=== PATIENT | female | born 1940 | race Hispanic/Latino ===

== ENCOUNTER 2022-06-07 14:04 | Inpatient (IN) | payer MEDICARE, OTHER ==
[~2022-06-07] VITALS: Ht 157.5 cm; Wt 81.6 kg
[2022-06-07 15:15] VITALS: BP 124/84
[2022-06-07] MEDS ORDERED: HYDRALAZINE HCL 10 MG TABLET PO PRN (16:00)
[2022-06-07] MEDS ORDERED: ONDANSETRON 4MG INJ IV PRN (16:00)
[2022-06-07] MEDS ORDERED: ACETAMINOPHEN 325 MG TAB PO PRN ×2 (16:00)
[2022-06-07] MEDS ORDERED: FAMOTIDINE 20MG TAB PO SCH (16:28)
[2022-06-07 16:29] LABS: HEMATOCRIT 45.7 % (36-48); MEAN CORPUSCULAR HEMOGLOBIN 30.1 pg (27.0-33.0); MEAN CORPUSCULAR HGB CONC 32.2 g/dL (32.0-36.0); MEAN CORPUSCULAR VOLUME 93.5 fL (79-99); RED BLOOD CELL COUNT(AUTO) 4.89 MIL/uL (4.00-5.50); RED CELL DISTRIBUTION WIDTH 14.4 % (11.0-15.5); WHITE BLOOD COUNT (AUTO) 5.9 K/uL (4.8-10.8)
[2022-06-07 16:35] LABS: CREATININE 1.2 mg/dL (0.5-1.5); POTASSIUM 4.1 mmol/L (3.5-5.1)
[2022-06-07 16:42] LABS: ALBUMIN 3.7 g/dL (3.5-5.0); TOTAL PROTEIN, SERUM 7.7 g/dL (6.0-8.3)
[2022-06-07] MEDS ORDERED: ACET-2079 PO (18:26)
[2022-06-07] MEDS ORDERED: GABA300S PO (18:26)
[2022-06-07] MEDS ORDERED: ATOR40TA71 PO (18:26)
[2022-06-07] MEDS ORDERED: CALC-190 PO (18:26)
[2022-06-07] MEDS ORDERED: WARF-67 PO (18:26)
[2022-06-07] MEDS ORDERED: FURO20TA4 PO (18:26)
[2022-06-07] MEDS ORDERED: TOLT4CAP27 PO (18:26)
[2022-06-07] MEDS ORDERED: WARF4TAB72 PO (18:26)
[2022-06-07] MEDS ORDERED: TEMA15CA PO (18:26)
[2022-06-07] MEDS ORDERED: POTA10CA44 PO (18:26)
[2022-06-07] MEDS ORDERED: SPIR25TA6 PO (18:26)
[2022-06-07] MEDS ORDERED: LEVO125T11 PO (18:26)
[2022-06-08] MEDS ORDERED: ENOXAPARIN SODIUM 40 MG/0.4 ML SYRINGE SQ SCH (09:00)
== END 2022-06-07 19:30 | disposition home or self-care (01) | DRG 311 ==
LOC: 4BH 15:10
PROVIDERS: ADMIT Hospitalist; ATTEND Hospitalist
DX: I20.0 Unstable angina (principal); I69.351 Hemiplegia and hemiparesis following cerebral infarction affecting right dominant side; I10 Essential (primary) hypertension; E78.5 Hyperlipidemia, unspecified; E66.9 Obesity, unspecified; Z68.32 Body mass index [BMI] 32.0-32.9, adult
CPT/HCPCS: 36415; 80053; 84443; 84484; 85027; 93005; G0378

== ENCOUNTER → 2022-10-09 | Outpatient (CLI) | payer MEDICARE, OTHER ==
[~2022-10-09] MED LIST: ACET-2079 PO; ATOR40TA71 PO; CALC-190 PO; FURO20TA4 PO; GABA300S PO; LEVO125T11 PO; POTA10CA44 PO; REGADENOSON 0.4 MG/5 ML PF SYG IVP SCH; SPIR25TA6 PO; TEMA15CA PO; TOLT4CAP27 PO; WARF-67 PO; WARF4TAB72 PO
== END | disposition home or self-care (01) ==
LOC: RAH 08:47
PROVIDERS: ATTEND Internal Medicine Interventional Cardiology
DX: R07.9 Chest pain, unspecified (principal)
CPT/HCPCS: 78452; 96374; 93017; J2785; A9500 ×2

== ENCOUNTER 2023-02-27 09:10 | Emergency (ER) | payer MEDICARE, OTHER ==
[~2023-02-27] VITALS: Ht 157.5 cm; Wt 62.6 kg
[~2023-02-27 09:10] MED LIST changes: -POTA10CA44 PO; +POTA10CA45 PO; -REGADENOSON 0.4 MG/5 ML PF SYG IVP SCH
[2023-02-27] MEDS ORDERED: TETANUS/DIPHTHERIA TOXOID [ADULT] 0.5 ML VIAL IM ONE (09:30)
[2023-02-27] MEDS ORDERED: ACETAMINOPHEN 500 MG TABLET PO ONE (09:30)
[2023-02-27] MEDS ORDERED: ACET-66 PO (11:09)
[2023-02-27 11:24] VITALS: BP 126/51
== END 2023-02-27 11:42 | disposition home or self-care (01) ==
LOC: EDH 09:10
DX: M25.521 Pain in right elbow (principal); M25.551 Pain in right hip; I10 Essential (primary) hypertension; Z88.0 Allergy status to penicillin; Z04.3 Encounter for examination and observation following other accident; Z79.899 Other long term (current) drug therapy; W11.XXXA Fall on and from ladder, initial encounter; Y93.89 Activity, other specified; Y92.89 Other specified places as the place of occurrence of the external cause; Y99.8 Other external cause status
CPT/HCPCS: 70450; 73070; 73522; 90471; 90714

== ENCOUNTER 2023-06-27 05:37 | Day surgery (SDC) | payer MEDICARE, OTHER ==
[2023-06-25 13:31] LABS: BASOPHILS % (AUTO) 1.1 % (0.0-5.0); EOSINOPHILS % (AUTO) 1.1 % (0.0-8.0); HEMATOCRIT 47.9 % (36-48); LYMPHOCYTES % (AUTO) 23.9 % (21.0-51.0); MEAN CORPUSCULAR HEMOGLOBIN 31.5 pg (27.0-33.0); MEAN CORPUSCULAR HGB CONC 32.8 g/dL (32.0-36.0); NEUTROPHILS % (AUTO) 62.8 % (40.0-77.0); PLATELET COUNT (AUTO) 300 K/uL (130-400); RED BLOOD CELL COUNT(AUTO) 4.99 MIL/uL (4.00-5.50); RED CELL DISTRIBUTION WIDTH 13.7 % (11.0-15.5); WHITE BLOOD COUNT (AUTO) 7.6 K/uL (4.8-10.8)
[2023-06-25 13:38] LABS: CREATININE 1.5 mg/dL (0.5-1.5); POTASSIUM 4.5 mmol/L (3.5-5.1)
[2023-06-25 13:44] LABS: PARTIAL THROMBOPLASTIN TIME 46.4 SEC (26.3-35.5)
[2023-06-25 14:30] LABS: INR 3.72 (0.85-1.15); PROTHROMBIN TIME 39.6 SEC (9.6-11.6)
[2023-06-25 14:31] LABS: B-TYPE NATRIURETIC PEPTIDE 54 pg/mL (0-100)
[~2023-06-27] VITALS: Ht 157.5 cm; Wt 69.4 kg
[2023-06-27] VITALS (10 sets, daily range): BP systolic 106–141; BP diastolic 48–75; PULSE 60–95; RESP 13–17
[~2023-06-27 05:37] MED LIST changes: -ACET-2079 PO; -ATOR40TA71 PO; -CALC-190 PO; +DULO30CA52 PO; +ENAL-89 PO; +FURO-152 PO; -FURO20TA4 PO; -GABA300S PO; +ISOS30TA92 PO; -LEVO125T11 PO; +LEVO137T2 PO; +METO25TA6 PO; +NITR0.4T50 SL; -POTA10CA45 PO; -SPIR25TA6 PO; -TEMA15CA PO; -TOLT4CAP27 PO; +TRAM50TA4 PO; -WARF-67 PO; -WARF4TAB72 PO; +WARFARIN PO
[2023-06-27 06:22] LABS: INR 2.17 (0.85-1.15); PROTHROMBIN TIME 23.9 SEC (9.6-11.6)
[2023-06-27 06:23] LABS: PARTIAL THROMBOPLASTIN TIME 40.1 SEC (26.3-35.5)
[2023-06-27] MEDS ORDERED: LIDOCAINE HCL 400MG/20ML VIAL ONE ×2 (07:15→07:59)
[2023-06-27] MEDS ORDERED: NITROGLYCERIN 50MG VIAL ONE (07:16)
[2023-06-27] MEDS ORDERED: MIDAZOLAM HCL 1 MG/ML 2ML VIAL ONE (07:16)
[2023-06-27] MEDS ORDERED: FENTANYL CITRATE PF 50 MCG/1 ML 2ML VIAL ONE (07:16)
[2023-06-27] MEDS ORDERED: IOHEXOL-350 75 ML VIAL IV ONE (07:16)
[2023-06-27] MEDS ORDERED: IOHEXOL-350 50ML VIAL IV ONE (08:19)
[2023-06-27] MEDS ORDERED: SPIR25TA6 PO (08:48)
[2023-06-27] MEDS ORDERED: DILT240C98 PO (08:48)
[2023-06-27] MEDS ORDERED: TEMA15CA PO (08:48)
[2023-06-27] MEDS ORDERED: POTA10CA85 PO (08:48)
[2023-06-27] MEDS ORDERED: DEXTROSE 50%-WATER 50 ML DISP.SYRIN IV PRN (09:00)
[2023-06-27] MEDS ORDERED: 0.9%NACL 1000ML 1,000 ML IV SCH (09:00)
[2023-06-27] MEDS ORDERED: INSULIN HUMULIN R 100 UNIT/ML 3ML SQ SCH (11:30)
== END 2023-06-27 14:10 | disposition home or self-care (01) ==
LOC: DAH 05:37
PROVIDERS: ATTEND Internal Medicine Interventional Cardiology
DX: I25.119 Atherosclerotic heart disease of native coronary artery with unspecified angina pectoris (principal); I48.11 Longstanding persistent atrial fibrillation; I27.20 Pulmonary hypertension, unspecified; I50.32 Chronic diastolic (congestive) heart failure; I73.9 Peripheral vascular disease, unspecified; G60.8 Other hereditary and idiopathic neuropathies; M79.609 Pain in unspecified limb; Z79.01 Long term (current) use of anticoagulants; Z79.899 Other long term (current) drug therapy; I25.2 Old myocardial infarction; Z86.73 Personal history of transient ischemic attack (TIA), and cerebral infarction without residual deficits; Z95.0 Presence of cardiac pacemaker
CPT/HCPCS: 80048; 83880; 85025; 85610 ×2; 85730 ×2; 36415 ×2; 93005; 93460; C1894 ×3; C1760; J3010; J3490 ×3; J2250; J1644; Q9967 ×2; A4215; A4335; A4222; A4663; A4216; A4606; A4223 ×3; A4554; 96360; 96361; 99156; 99157